=== PATIENT | female | born 1980 | race Caucasian/White ===

== ENCOUNTER 2018-10-07 08:12 | Emergency (ER) | payer SELFPAY ==
[~2018-10-07] VITALS: Ht 180.3 cm; Wt 86.6 kg
== END 2018-10-07 08:25 | disposition home or self-care (01) ==
LOC: ED 08:12
DX: R09.81 Nasal congestion (principal)

== ENCOUNTER 2019-04-23 07:32 | Emergency (ER) | payer OTHER ==
[~2019-04-23] VITALS: Ht 180.3 cm; Wt 86.6 kg
[2019-04-23] MEDS ORDERED: HYDROXYZINE HCL25 MG PO (07:55)
[2019-04-23] MEDS ORDERED: ESCITALOPRAM OX20 MG (07:56)
[2019-04-23] MEDS ORDERED: ARIPIPRAZOLE15 MG (07:56)
[2019-04-23] MEDS ORDERED: IBUPROFEN600 MG (07:56)
[2019-04-23] MEDS ORDERED: HYDROCHLOROTH12.5 MG (07:56)
[2019-04-23] MEDS ORDERED: FLUARIX QU60 MCG/0.7 (07:56)
[2019-04-23] MEDS ORDERED: ATOMOXETINE HC100 MG (07:56)
== END 2019-04-23 08:38 | disposition home or self-care (01) ==
LOC: ED 07:32
DX: S93.402A Sprain of unspecified ligament of left ankle, initial encounter (principal); F32.9 Major depressive disorder, single episode, unspecified; F41.9 Anxiety disorder, unspecified; F90.9 Attention-deficit hyperactivity disorder, unspecified type; F17.200 Nicotine dependence, unspecified, uncomplicated; Z79.899 Other long term (current) drug therapy; X50.9XXA Other and unspecified overexertion or strenuous movements or postures, initial encounter
CPT/HCPCS: 73610; 99283-25; A9270

== ENCOUNTER 2019-08-03 18:08 | Emergency (ER) | payer OTHER ==
[~2019-08-03] VITALS: Ht 180.3 cm; Wt 86.6 kg
[~2019-08-03 18:08] MED LIST: ARIPIPRAZOLE15 MG; ATOMOXETINE HC100 MG; ESCITALOPRAM OX20 MG; FLUARIX QU60 MCG/0.7; HYDROCHLOROTH12.5 MG; HYDROXYZINE HCL25 MG PO; IBUPROFEN600 MG
--- OUTSIDE RECORDS SUMMARY | 2019-08-03 18:10 | XMS ---
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 Guidelines Source: [facility] [place] Guidelines Date: 05/06/2019 Care Coordination: Receives mental health services with [facility].\T\nbsp; Please contact [facility] for any mental health concerns.\T\nbsp; [facility]: [phone]\ T\nbsp; William: [phone]. E.D. VISIT COUNT (12 MO.) 3 [facility] TOTAL 3 NOTE: Visits indicate total known visits. ED/UCC VISIT TRACKING (12 MO.) 08/03/2019 18:09 [facility] [place] TYPE: Emergency COMPLAINT: - BACK PAIN NON INJURY 04/23/2019 07:32 [facility] TYPE: Emergency COMPLAINT: - LEFT ANKLE PAIN DIAGNOSES: - Attention-deficit hyperactivity disorder, unspecified type - Major depressive disorder, single episode, unspecified - Nicotine dependence, unspecified, uncomplicated - Pain in left ankle and joints of left foot - Anxiety disorder, unspecified - Sprain of unspecified ligament of left ankle, init encntr - Other and unspecified ovrexrtn or strnous move/pstr, init - Other correction (current) drug therapy 10/07/2018 08:13 [facility] [place] TYPE: Emergency COMPLAINT: - COLD SYMPTOMS DIAGNOSES: - Nasal congestion INPATIENT VISIT TRACKING (12 MO.) No inpatient visits to display in this time frame [email or web address]
[2019-08-03] MEDS ORDERED: CLONIDINE HCL0.1 MG PO (18:18)
== END 2019-08-03 19:36 | disposition home or self-care (01) ==
LOC: ED 18:08
DX: M54.9 Dorsalgia, unspecified (principal); F32.9 Major depressive disorder, single episode, unspecified; F41.9 Anxiety disorder, unspecified; F90.9 Attention-deficit hyperactivity disorder, unspecified type; F17.200 Nicotine dependence, unspecified, uncomplicated; Z79.899 Other long term (current) drug therapy
CPT/HCPCS: 81001; 84703; 99283; A9270